=== PATIENT | female | born 1995 | race Caucasian/White ===

== ENCOUNTER 2020-07-10 17:20 | Emergency (ER) | payer OTHER ==
[~2020-07-10] VITALS: Ht 167.6 cm; Wt 90.9 kg
[2020-07-10 17:41] VITALS: TEMP 98.9
[2020-07-10] MEDS ORDERED: DECADRON 4MG TAB4 MG PO (19:08)
[2020-07-10] MEDS ORDERED: ZITHROMAX Z PA250 MG PO (19:08)
[2020-07-10 19:31] VITALS: BP 133/70; PULSE 78
== END 2020-07-10 19:31 | disposition home or self-care (01) ==
LOC: COL.ER 17:20
DX: U07.1 COVID-19 (principal)